=== PATIENT | female | born 1955 | race Caucasian/White ===

== ENCOUNTER → 2016-09-06 | Outpatient (CLI) | payer OTHER | LOC: BMCIMAGING 08:54 | PROVIDERS: ATTEND Internal Medicine | DX: R10.12 Left upper quadrant pain (principal) ==

== ENCOUNTER 2016-11-12 16:28 | Emergency (ER) | payer OTHER ==
[2016-11-12 16:34] VITALS: TEMP 98.2
--- NOTE | 2016-11-12 16:40 | EDPHY ---
H & P Constitutional: Initial Vital Signs Temperature (C) 36.8 C 11/12/16 16:28 Heart Rate 83 11/12/16 16:28 Respiratory Rate 16 11/12/16 16:28 Blood Pressure 128/70 H 11/12/16 16:28 O2 Sat (%) 95 11/12/16 16:28 O2 Delivery Mode Room Air Allergies/Adverse Reactions: No Known Allergies Allergy (Unverified 11/12/16 16:35) Home Medications: Medication Instructions Recorded HYDROcodone/APAP [Cranston 1 - 2 each PO Q4-6PRN PRN #20 tab 11/12/16] Medical Decision Making - Diagnostics Imaging Results: Imaging Impressions Wrist X-Ray 11/12/16 16:57 Impression: Comminuted intra-articular fracture of the distal radius with dorsal angulation. Imaging: Discussed imaging studies w/ spindraw operator Radiologist, I viewed and interpreted images myself ED Course/Re-evaluation: CHIEF COMPLAINT: Right wrist pain/injury HISTORY OF PRESENT ILLNESS: The patient is a 61 y/o female arriving via EMS, complaining of right wrist pain secondary to a fall while hiking. She states she can only move her right first and second digits due to the pain when she moves her 3rd-5th digits. She had numbness and tingling to both hands after the fall, but this has since subsided. Denies history of a wrist injury. Denies chest pain, abdominal pain, fever, or other systemic illness. REVIEW OF SYSTEMS:A 10 point review of systems was performed and is negative with the exception of the elements mentioned in the history of present illness. PHYSICAL EXAM: General Appearance: Alert, no distress, talking appropriately, comfortable. Head: Atraumatic without scalp tenderness or obvious injury Eyes: Pupils equal, round, reactive to light and accommodation, EOMI, no trauma , no injection. Ears: Clear bilaterally, no perforation, no hemotympanum Nose: Atraumatic, no rhinorrhea, no septal hematoma Neck: The patient arrived in a cervical collar. All NEXUS criteria are negative. The cervical spine is non-tender and there is no pain or neurologic deficits with active range of motion. Supple no trauma, trachea midline. Cardiovascular: Heart is regular rate and rhythm without murmur. Good capillary refill all extremities. Chest: Atraumatic, equal bilateral breath sounds. Good oxygen saturations with normal minute ventilation. Chest is non-tender to palpation. Gastrointestinal: Soft, non-tender, non-distended. No rebound, guarding, or peritoneal signs. There is no evidence of external or internal trauma. Back: Spinal precautions were maintained as the patient was log-rolled with cervical control. There is no thoracic or lumbar spine or paraspinal tenderness. Spinal immobilization was removed. Extremities: Severe right wrist tenderness. All other extremities are non- tender to palpation without obvious deformity. There is full active range of motion of the joints. Neurological: The patient has normal DTRs and non-focal Cranial nerves, motor, sensory, and cerebellar exam Skin: Mild abrasions to upper and lower lips. No lacerations or gonzalez. PAST MEDICAL HISTORY: Denies PAST SURGICAL HISTORY: Denies SOCIAL HISTORY: at bedside, lives in [place], works at DIAGNOSTICS/PROCEDURES/CRITICAL CARE TIME: Right wrist X-ray: Interarticular distal radius fracture Procedure: Fracture treatment. The patient had x-rays taken and I confirmed that the patient had a interarticular distal radius fracture. I do not believe that the patient requires immediate orthopedic consultation, nor do I believe that reduction at a later date will be required. A short arm ortho-glass splint was applied with ample cast padding in a position of function. After application of the splint, I returned and re-examined the patient. The splint was adequately immobilizing the joint and distal to the splint the patient's circulation and sensation was intact. DIFFERENTIAL DIAGNOSIS: The differential diagnosis for the patient's trauma included but was not limited to intracranial injury, long bone and pelvic bone fractures, spinal injury, intra-abdominal injury, and intra-thoracic injury. MEDICAL DECISION MAKING: The patient is a 61 y/o female arriving via EMS who presents with right wrist tenderness secondary to a fall while hiking. She also has multiple abrasions on her upper and lower lip. On exam she has a closed injury, is neurovascularly intact distal to the injury, she does not have compartment syndrome, the joints above and below are normal, and there is no tenting of the skin. Plan on right wrist x-ray and pain management. 1mg IV Dilaudid and 4mg IV Zofran administered. 1735: Reassessed patient and discussed imaging results. 1745: Consulted with Dr. Yimi Nguyen, orthopedic surgeon, he agrees to see her as an outpatient. She has a relationship with Dr. Ley, orthopedic surgeon. Dr. Nguyen is comfortable with having Dr. Ley follow up with her as an outpatient. 1752: Yosef from Dr. Ley's office agrees to see patient for follow up and surgery. Reassessed patient and discussed orthopedic follow up. Plan on splint to stabilize her radius until follow up appointment. Return precautions provided; patient is comfortable with this plan. - Data Points Medications Given: Discontinued Medications Hydromorphone HCl (Dilaudid) 1 mg IVP EDNOW ONE Stop: 11/12/16 17:22 Last Admin: 11/12/16 17:23 Dose: 1 mg Ondansetron HCl (Zofran) 4 mg IVP EDNOW ONE Stop: 11/12/16 17:22 Last Admin: 11/12/16 17:23 Dose: 4 mg Departure - Departure Disposition: Home, Routine, Self-Care Clinical Impression: Right radial fracture Qualifiers: Encounter type: initial encounter Radius location: distal Fracture type: closed Fracture morphology: unspecified fracture morphology Qualified Code(s): S52.501A - Unspecified fracture of the lower end of right radius, initial encounter for closed fracture Lip abrasion Qualifiers: Encounter type: initial encounter Qualified Code(s): S00.511A - Abrasion of lip , initial encounter Condition: Good Instructions: Wrist Fracture in Adults (ED), Abrasion (ED), Splint Care (ED) Additional Instructions: 1. Take 600mg of ibuprofen every 6-8 hours as needed for pain. 2. Take Cranston as prescribed for severe pain. 3. Follow up with Dr. Eric Ley, orthopedic surgeon, in the next 2-3 days without fail. 4. Return to the ED for weakness, numbness, fever, severe redness or swelling near injury, or other worsening of symptoms. Referrals: Patient,NotPresent [Unknown] - As per Instructions Eric Ley MD [Medical Doctor] - As per Instructions Report Scribed for: Brandon Goldberg Report Scribed by: Dena Khan Date of Report: 11/12/16 Time of Report: 16:48
[2016-11-12] MEDS ORDERED: ONDANSETRON 4 MG/2 ML VIAL ONE (17:21)
[2016-11-12] MEDS ORDERED: HYDROmorphONE/DILAUDID 1 MG/ML SYR IVP ONE (17:21)
[2016-11-12] MEDS ORDERED: ONDANSETRON 4 MG/2 ML VIAL IVP ONE (17:21)
[2016-11-12 17:29] VITALS: RESP 18
[2016-11-12] MEDS ORDERED: HYDROCOD/APAP 5/325 PREPACK#6 BTL TAKEHOME ONE (18:13)
[2016-11-12 18:26] VITALS: BP 123/71; PULSE 72; O2SAT 100
== END 2016-11-12 18:26 | disposition home or self-care (01) ==
LOC: EDUNIT#
DX: S52.571A Other intraarticular fracture of lower end of right radius, initial encounter for closed fracture (principal); S00.511A Abrasion of lip, initial encounter; W01.0XXA Fall on same level from slipping, tripping and stumbling without subsequent striking against object, initial encounter; Y99.8 Other external cause status; Y93.01 Activity, walking, marching and hiking
CPT/HCPCS: 96374; A4565; J1170; J2405

== ENCOUNTER → 2017-01-11 | Outpatient (CLI) | payer OTHER | LOC: BMCIMAGING 12:58 | PROVIDERS: ATTEND Nurse Practitioner Adult Health | DX: R06.02 Shortness of breath (principal) ==

== ENCOUNTER → 2017-04-04 | Outpatient (CLI) | payer OTHER | LOC: FIMAGING 09:20 | PROVIDERS: ATTEND Internal Medicine | DX: Z12.31 Encounter for screening mammogram for malignant neoplasm of breast (principal); Z13.820 Encounter for screening for osteoporosis; M85.80 Other specified disorders of bone density and structure, unspecified site; Z78.0 Asymptomatic menopausal state; Z87.81 Personal history of (healed) traumatic fracture ==

== ENCOUNTER → 2018-04-24 | Outpatient (CLI) | payer OTHER | LOC: FIMAGING 09:24 | PROVIDERS: ATTEND Internal Medicine | DX: Z12.31 Encounter for screening mammogram for malignant neoplasm of breast (principal) ==

== ENCOUNTER → 2018-05-31 | Outpatient (CLI) | payer OTHER | LOC: BMCIMAGING 14:19 | PROVIDERS: ATTEND Internal Medicine | DX: R06.02 Shortness of breath (principal) ==